=== PATIENT | female | born 1945 | race Caucasian/White ===

== ENCOUNTER 2020-05-09 20:41 | Emergency (ER) | payer MEDICARE, BC, SELFPAY ==
[2020-05-09 20:40] VITALS: BP 170/73; PULSE 84; RESP 22; O2SAT 100
--- NOTE | 2020-05-09 20:57 | ECG_ITS ---
Measurements Intervals [place] Rate: 81 P: 27 VA: 151 QRS: -8 QRSD: 86 T: 24 QT: 353 QTc: 412 Interpretive Statements SINUS RHYTHM BASELINE ARTIFACT- I, III, AVR, AVL, AVF NORMAL ECG Electronically Signed On 05-10-2020 6:57:12 CDT by Adan Murray D.O.
[2020-05-09 21:09] VITALS: BP 137/84
--- NOTE | 2020-05-09 21:10 | ED.ARRPALP ---
HPI - Arrhythmia/Palpitations General Chief Complaint: Arrhythmia/Palpitations Stated Complaint: high blood pressure, heart palpitations History of Present Illness HPI narrative: This is a 74-year-old female that presents with some history of palpitations has been getting frequent palpitations she saw her reinforcement maker earlier today and, her palpitations continued and she presents to the emergency department currently there was no palpitations while she has been here in the ER, there was no chest pain no shortness of breath no abdominal pain no nausea vomiting no diarrhea constipation. Patient has a history of hypertension, hyperlipidemia, and has been on magnesium. She saw her reinforcement maker earlier today and had orders to have blood work done per her reinforcement maker. Currently the patient appears comfortable no palpitations currently. complaint: skipped beats and palpitations Onset (ago): day(s) Duration: intermittent Severity: mild Context: occurred during rest Associated symptoms: denies other symptoms Related Data Allergies Allergy/AdvReac Type Severity Reaction Status Date / Time amoxicillin Allergy Intermediate Unknown Verified 04/23/20 13:18 sulfamethoxazole [Bactrim] Allergy Intermediate Unknown Verified 04/23/20 13:18 trimethoprim [Bactrim] Allergy Intermediate Unknown Verified 04/23/20 13:18 verapamil Allergy Intermediate Unknown Verified 04/23/20 13:18 lisinopril Allergy Unknown Palpitation Verified 04/23/20 13:18 s Sulfa (Sulfonamide Allergy Unknown Verified 04/23/20 13:18 Antibiotics) Sulfonamides Allergy Intermediate Unknown Uncoded 04/23/20 13:18 Review of Systems Review of Systems: All systems reviewed & are unremarkable except as noted in HPI and below PMFSH Past Medical History Medical History Cholecystitis (01/24/18) Dizziness (05/11/19) Essential hypertension (05/10/18) GERD (gastroesophageal reflux disease) (05/10/18) Paroxysmal tachycardia, unspecified (05/11/19) Surgical History Surgical History History of lumpectomy Family History Family History Father Lung cancer Mother Cerebrovascular accident Mother Cerebrovascular accident, Onset Age: 85 Father Family history of lung cancer Social History Social History Smoking status: Never smoker Exam Const: General: no acute distress Orientation/consciousness: patient oriented x3 HENMT: Head: normal to inspection Eyes: Conjunctivae: conjunctivae normal Pupils: Equal, round and reactive pupils present EOM: EOMs intact bilaterally Neck: Neck: normal visual inspection, no lymphadenopathy and no meningeal signs Chest: Chest palpation & inspection: normal inspection of the chest Resp: Effort & Inspection: normal respiratory effort Cardio: Rate: regular rate Rhythm: regular rhythm : General: Yes no CVA tenderness Back/Spine/Pelvis: Back: no CVA tenderness Skin: General skin exam: normal color Rashes: no rashes Neuro: General: patient oriented x3, moves all extremities, no meningeal signs and no focal motor deficits Extrem: General: normal to inspection Psych: Mental Status: mental status grossly normal Course Vital Signs Vital signs: Vital Signs Pulse Rate 84 05/09/20 20:40 Respiratory Rate 22 H 05/09/20 20:40 Blood Pressure 170/73 H 05/09/20 20:40 Pulse Oximetry 100 05/09/20 20:40 Pulse Rate 84 05/09/20 20:40 Respiratory Rate 22 H 05/09/20 20:40 Blood Pressure 137/84 05/09/20 21:09 Pulse Oximetry 100 05/09/20 20:40 MDM - Arrhythmia/Palpitations ECG Data EKG #1: ECG completion date: 05/09/20 ECG completion time: 21:18 Prior ECG tracings: not available for review EKG Interpretation: normal rate Critical Care Time Critical C
[2020-05-09 21:14] LABS: Mean Corpuscular HGB Conc 33.3 g/dL (32.0-36.0); Mean Corpuscular Hemoglobin 30.9 pg (27.0-31.0); Mean Corpuscular Volume 92.8 fL (78.0-102.0); Mean Platelet Volume 9.6 fl (9.2-11.8); Platelet Count Result 258 K/mm3 (150-420); Red Blood Count 4.85 M/mm3 (4.20-5.40); Red Cell Distribution Width 12.7 % (11.6-14.4); White Blood Count 11.4 K/mm3 (4.8-10.8)
[2020-05-09 21:38] LABS: Alanine Aminotransferase 18 U/L (14-59); Albumin Level 3.6 g/dL (3.4-5.0); Alkaline Phosphatase 124 U/L (46-116); Anion Gap 9.8 mmol/L (7-16); Aspartate Amino Transferase 17 U/L (15-37); Bilirubin,Total 0.2 mg/dL (0.00-1.00); Blood Urea Nitrogen 19 mg/dL (7-18); Calcium 9.2 mg/dL (8.5-10.1); Carbon Dioxide 30 mmol/L (21-32); Chloride 104 mmol/L (98-108); Estimated Glomerular Filt Rate 50; Glucose 136 mg/dL (70-99); Osmolality Calculated 294 mOsm/kg (285-295); Potassium 3.8 mmol/L (3.5-5.1); Sodium 140 mmol/L (136-145); Total Protein 7.6 g/dL (6.4-8.2)
[2020-05-09 21:39] LABS: Thyroid Stimulating Hormone 3.13 uIU/mL (0.36-3.74)
[2020-05-09 21:53] VITALS: BP 133/71; PULSE 81; O2SAT 97
== END 2020-05-09 21:55 | disposition home or self-care (01) ==
PROVIDERS: Emergency Provider Emergency Medicine; PCP Nurse Practitioner Family
DX: R00.2 Palpitations (principal); F41.9 Anxiety disorder, unspecified
CPT/HCPCS: 36415; 80053; 83735; 84443; 85027; 93005; 99283

== ENCOUNTER 2020-05-10 14:22 | Outpatient (CLI) | payer MEDICARE, BC, SELFPAY ==
--- NOTE | 2020-06-10 16:01 | WPDHOLTEREM ---
Holter/Event Monitor Holter/Event Monitor Date of procedure: 05/10/20 Procedure Type: 30 day event monitor Indications: Palpitations Conclusion: 1. 30 day event monitor between 05/10/20-06/08/20. There are 38 available transmissions for analysis. 2. Underlying rhythm is sinus rhythm. HR range 50-120 bpm; average HR 64 bpm. 3. There are occasional premature supraventricular complexes with total burden <1%. No supraventricular tachycardia. 4. There are occasional premature ventricular complexes with total burden <1%. No ventricular tachycardia. 5. No sinoatrial or atrioventricular blocks. No significant pauses greater than 2 seconds. 6. Patient reports 2 episodes of symptoms of heart racing and symptom other than listed which demonstrate sinus rhythm, HR range 73-81 bpm.
== END 2020-05-10 14:23 | disposition home or self-care (01) ==
LOC: CHSCARD 14:24
PROVIDERS: PCP Nurse Practitioner Family; Visit Provider Internal Medicine Cardiovascular Disease
DX: Z53.8 Procedure and treatment not carried out for other reasons (principal)
CPT/HCPCS: 99199

== ENCOUNTER 2020-09-27 07:12 | Outpatient (CLI) | payer MEDICARE, SELFPAY ==
[2020-09-27 09:06] LABS: Alanine Aminotransferase 22 U/L (14-59); Albumin Level 3.7 g/dL (3.4-5.0); Alkaline Phosphatase 100 U/L (46-116); Anion Gap 10 mmol/L (8-16); Aspartate Amino Transferase 12 U/L (15-37); Bilirubin,Total 0.4 mg/dL (0.00-1.00); Blood Urea Nitrogen 17 mg/dL (7-18); Calcium 9.2 mg/dL (8.5-10.1); Carbon Dioxide 27 mmol/L (21-32); Chloride 105 mmol/L (98-108); Cholesterol 182 mg/dL (0-200); Estimated Glomerular Filt Rate 57; Glucose 102 mg/dL (70-99); HDL Direct 41 mg/dL (40-60); LDL Cholesterol Calculated 108 mg/dL (<130); Magnesium 1.9 mg/dL (1.8-2.4); Osmolality Calculated 295 mOsm/kg (285-295); Sodium 142 mmol/L (136-145); Total Protein 7.1 g/dL (6.4-8.2); Triglycerides 167 mg/dL (0-150)
== END 2020-09-27 07:13 | disposition home or self-care (01) ==
LOC: CHSLAB 07:16
PROVIDERS: PCP Nurse Practitioner Family; Visit Provider Internal Medicine Cardiovascular Disease
DX: E78.5 Hyperlipidemia, unspecified (principal)
CPT/HCPCS: 36415; 80053; 80061; 83735

== ENCOUNTER 2020-10-04 10:22 | Outpatient (CLI) | payer MEDICARE, BC, SELFPAY ==
--- NOTE | ~2020-10-04 | MMUS_ITS ---
EXAMINATION: MM diagnostic astrid RT w francisca, US axilla RT HISTORY: Right breast pain, history of right breast cancer TECHNIQUE: Craniocaudal, mediolateral, and mediolateral oblique 3-D tomosynthesis images of the right breast were performed and synthetic 2-D images were generated. CAD analysis was submitted and interp reted. High resolution right axillary ultrasound was performed. COMPARISON: 12/14/2019, 12/12/2018, 07/11/2018, 12/06/2017 BREAST PARENCHYMAL COMPOSITION: There are scattered areas of fibroglandular density. FINDINGS: MAMMOGRAPHIC FINDINGS: Stable lumpectomy changes are present in the breast. There is no suspicious mass, calcification, or a rchitectural distortion. No mammographic correlate is identified for the patient's reported right axi llary tenderness. ULTRASOUND: There is no evidence of focal abnormal solid or cystic lesion in the vicinity of the patient's right axillary pain. IMPRESSION: 1. No specific mammographic or sonographic correlate is identified for the patient's right axillary p ain. Further evaluation at this time should be based on clinical assessment. Continued follow-up phys ical examination is recommended. 2. Routine screening mammography is recommended. BI-RADS Category 2: Benign finding(s). Reviewed, dictated and finalized at location A. 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 No specific mammographic or sonographic correlate is identified for the sandra ent's right axillary pain. Further evaluation at this time should be based on c linical assessment. Continued follow-up physical examination is recommended. 2. Routine screening mammography is recommended. BI-RADS Category 2: Benign finding(s).
== END 2020-10-04 10:23 | disposition home or self-care (01) ==
LOC: CHSIMG 10:23
PROVIDERS: PCP Nurse Practitioner Family; Visit Provider Nurse Practitioner Family
DX: N64.59 Other signs and symptoms in breast (principal); N64.4 Mastodynia; M79.621 Pain in right upper arm
CPT/HCPCS: 76882; 77061; 77065; G0279

== ENCOUNTER 2020-11-15 16:43 | Emergency (ER) | payer MEDICARE, BC, SELFPAY ==
[2020-11-15 18:30] VITALS: BP 146/71; PULSE 78; RESP 16; TEMP 37; O2SAT 96
[2020-11-15] MEDS: ORPHENADRINE CITRATE 100 MG TABLET.ER PO (19:15)
[2020-11-15] MEDS: KETOROLAC (*BKC) 60 MG/2 ML VIAL IM (19:15)
--- NOTE | 2020-11-15 19:44 | ED.GENADULT ---
HPI - General Adult General Chief complaint: Extremity Injury, Upper Stated complaint: pain in shoulder Time Seen by Provider: 11/15/20 18:40 Source: patient Mode of arrival: ambulatory Limitations: no limitations History of Present Illness HPI narrative: She complains of pain in right neck and shoulder after reportedly moving heavy objects yesterday. Onset of pain, or when she noticed it was this am when she woke about 8am. Measures taken at home have not helped. Radiation: non-radiation Severity: moderate Severity scale (1-10): 6 Quality: burning and aching Pain Consistency: constant Relieving factors: none Exacerbating factors: movement Associated symptoms: denies other symptoms Treatments prior to arrival: NSAID Related Data Allergies Allergy/AdvReac Type Severity Reaction Status Date / Time amoxicillin Allergy Intermediate Unknown Verified 11/04/20 13:16 sulfamethoxazole [Bactrim] Allergy Intermediate Unknown Verified 11/04/20 13:16 verapamil Allergy Intermediate Unknown Verified 11/04/20 13:16 lisinopril Allergy Unknown Palpitation Verified 11/04/20 13:16 s Sulfa (Sulfonamide Allergy Unknown Unknown Verified 11/04/20 13:16 Antibiotics) Review of Systems Constitutional: Constitutional: Reports no additional constitutional complaints Eyes: Eyes: Reports no additional eye complaints ENT: Reports system reviewed and no additional complaints, except as documented Cardiovascular: Cardiovascular: Reports no additional cardiovascular complaints Respiratory: Respiratory: Reports no additional respiratory complaints Gastrointestinal: Gastrointestinal: Reports no additional gastrointestinal complaints Genitourinary: Genitourinary: Reports no additional female genitourinary complaints Musculoskeletal: Musculoskeletal: Reports no additional musculoskeletal complaints Integumentary/Breasts: Skin/Breast: Reports system reviewed and no additional complaints, except as docu Neurologic: Reports system reviewed and no additional complaints, except as documented Psychiatric: Psychiatric: Reports no additional psychiatric complaints Endocrine: Endocrine: Reports no additional endocrine complaints Hematologic/Lymphatic: Hematologic/Lymphatic: Reports no additional hematologic/lymphatic complaints Allergic/Immunologic: Allergic/Immunologic: Reports no additional allergic/immunologic complaints PMFSH Past Medical History Medical History Cholecystitis (01/24/18) Dizziness (05/11/19) Essential hypertension (05/10/18) GERD (gastroesophageal reflux disease) (05/10/18) Paroxysmal tachycardia, unspecified (05/11/19) Surgical History Surgical History History of lumpectomy Family History Family History Father Lung cancer Mother Cerebrovascular accident Mother Cerebrovascular accident, Onset Age: 85 Father Family history of lung cancer Social History Social History Smoking status: Never smoker Tobacco type: cigarettes Substance use: never Substance use type: does not use Exam Narrative: Exam Narrative: She appears uncomfortable with any movement of neck to the left. Const: General: healthy appearing and no acute distress Orientation/consciousness: patient oriented x3 HENMT: Head: normal to inspection Ears: external ears normal and TM's normal bilaterally General nose exam: Normal nares present Face and sinus: normal facial exam Mouth: Yes Normal oral and palatal mucosa present Throat: posterior oropharynx normal Eyes: Conjunctivae: conjunctivae normal Neck: Neck: normal visual inspection Other: She seems to have pain turning neck to left, no pain along cervical spine, or moving neck up and down. Denies trauma. Chest: Chest palpation & inspection: normal inspection of the chest Res
[2020-11-15 19:58] VITALS: O2SAT 97
[2020-11-15 20:00] VITALS: BP 133/60; PULSE 68; RESP 15; O2SAT 98
== END 2020-11-15 20:00 | disposition home or self-care (01) ==
PROVIDERS: Emergency Provider Emergency Medicine; PCP Nurse Practitioner Family
DX: M54.2 Cervicalgia (principal)
CPT/HCPCS: 96372; 99283; A9270; J1885

== ENCOUNTER 2020-11-17 10:50 | Emergency (ER) | payer MEDICARE, BC, SELFPAY ==
[2020-11-17 11:15] VITALS: BP 156/68; PULSE 74; RESP 20; TEMP 36.4; O2SAT 97
[2020-11-17] MEDS: KETOROLAC (*BKC) 60 MG/2 ML VIAL IM (11:30)
--- NOTE | 2020-11-17 12:54 | ED.EXTPRO ---
HPI - Extremity Problem General Chief complaint: Extremity Problem,Nontraumatic Stated complaint: right sholder Time Seen by Provider: 11/17/20 11:25 Source: patient Mode of arrival: ambulatory Limitations: no limitations History of Present Illness HPI Narrative: Patient comes in with pain in her left neck and radiation down the left shoulder. She states this is severe, sharp, and ongoing. She took the baclofen that I gave her, but says it did not help. Pain Consistency: intermittent Location: upper extremity Severity scale (1-10): 8 Quality: aching Relieving factors: nothing Exacerbating factors: nothing Associated symptoms: denies other symptoms Related Data Allergies Allergy/AdvReac Type Severity Reaction Status Date / Time amoxicillin Allergy Intermediate Unknown Verified 11/04/20 13:16 sulfamethoxazole [Bactrim] Allergy Intermediate Unknown Verified 11/04/20 13:16 verapamil Allergy Intermediate Unknown Verified 11/04/20 13:16 lisinopril Allergy Unknown Palpitation Verified 11/04/20 13:16 s Sulfa (Sulfonamide Allergy Unknown Unknown Verified 11/04/20 13:16 Antibiotics) Review of Systems Constitutional: Constitutional: Reports no additional constitutional complaints Eyes: Eyes: Reports no additional eye complaints ENT: Reports system reviewed and no additional complaints, except as documented Cardiovascular: Cardiovascular: Reports no additional cardiovascular complaints Respiratory: Respiratory: Reports no additional respiratory complaints Gastrointestinal: Gastrointestinal: Reports no additional gastrointestinal complaints Genitourinary: Genitourinary: Reports no additional female genitourinary complaints Musculoskeletal: Comments: Now she can move her head without any discomfort in her neck and has full range of motion. Integumentary/Breasts: Skin/Breast: Reports system reviewed and no additional complaints, except as docu Neurologic: Reports system reviewed and no additional complaints, except as documented Psychiatric: Psychiatric: Reports no additional psychiatric complaints Endocrine: Endocrine: Reports no additional endocrine complaints Hematologic/Lymphatic: Hematologic/Lymphatic: Reports no additional hematologic/lymphatic complaints Allergic/Immunologic: Allergic/Immunologic: Reports no additional allergic/immunologic complaints PMFSH Past Medical History Medical History Cholecystitis (01/24/18) Dizziness (05/11/19) Essential hypertension (05/10/18) GERD (gastroesophageal reflux disease) (05/10/18) Paroxysmal tachycardia, unspecified (05/11/19) Surgical History Surgical History History of lumpectomy Family History Family History Father Lung cancer Mother Cerebrovascular accident Mother Cerebrovascular accident, Onset Age: 85 Father Family history of lung cancer Social History Social History Smoking status: Never smoker Tobacco type: cigarettes Substance use: never Substance use type: does not use Exam Const: General: healthy appearing and no acute distress HENMT: Head: normal to inspection Ears: external ears normal and TM's normal bilaterally Face and sinus: normal facial exam Throat: posterior oropharynx normal Eyes: Conjunctivae: conjunctivae normal Neck: Neck: normal visual inspection Other: normal range of motion of the neck Chest: Chest palpation & inspection: normal inspection of the chest Resp: Effort & Inspection: normal respiratory effort Auscultation: clear to auscultation bilaterally Cardio: Rate: regular rate Rhythm: regular rhythm GI: GI Palp: Yes Soft to palpation (nontender) Skin: General skin exam: normal color Neuro: General: patient oriented x3 Extrem: General: normal to inspection Psych: Mental Status: mental stat
[2020-11-17 13:16] VITALS: BP 154/65
== END 2020-11-17 13:16 | disposition home or self-care (01) ==
PROVIDERS: Emergency Provider Emergency Medicine; PCP Nurse Practitioner Family
DX: M54.2 Cervicalgia (principal)
CPT/HCPCS: 96372; 99283; 99284; J1100; J1885

== ENCOUNTER 2020-11-26 09:56 | Outpatient (RCR) | payer MEDICARE, BC, SELFPAY ==
--- NOTE | 2020-11-26 11:05 | PTOPEVAL ---
Thank you for referring Lizz Mary to [facility].? The patient is scheduled to be seen for therapy? ____x/week for ___ weeks. Please review, sign, date and return this plan of care HITESH. I agree with and certify that the following plan of care is medically necessary. Referring Physician Date Admitting Provider: Attending Provider: Darcy Shaw NP Referring Provider: *PT Outpatient Evaluation Start: 11/26/20 10:06 Freq: Status: Active Protocol: Document 11/26/20 10:11 [facility] (Rec: 11/26/20 11:05 [facility] [id number]) Therapy Assessment Status Assessment Status Assessment Status Evaluation Outpatient Past Medical History Cardiovascular History Hx Hypertension Yes Gastrointestinal History Hx Cholecystectomy Yes Reproductive History Hx Post Menopausal Yes Other History Hx Cancer Yes: R BREAST WITH LUMPECTOMY Hx Other Medical Conditions Yes: LYMPHEDEMA Evaluation Information Problem Diagnosis cervical radiculopathy Onset 11/15/20 Additional Evaluation Detail NDI = 23% functionally declined Subjective Information patient reports she had some Query Text:As Reported By Patient/ guests to her house on [address]. she reports she had to move some furniture that day. she reports she woke up the neck morning with pain on the R side of the neck down the R arm, and into the wrist. she reports she was taking muscle relaxors and pain meds, but no longer is taking them. she reports her meds were making her loopy and sleepy. she reports she has increased pain in the mornings . she reports she uses an ice pack on the arm. she reports she notivces increased pain with turning her head side to side. Prior Level of Function Comments Additional Prior Level of Function patient reports she is Comments complicated by sciatic nerve pain as well. [facility] patient reports she is having difficulty with doing her hair and makeup at home.
--- NOTE | 2020-12-24 16:23 | PTOPEVAL ---
Thank you for referring Lizz Mary to [facility].? The patient is scheduled to be seen for therapy? ____x/week for ___ weeks. Please review, sign, date and return this plan of care HITESH. I agree with and certify that the following plan of care is medically necessary. Referring Physician Date Admitting Provider: Attending Provider: Darcy Shaw NP Referring Provider: JARVIS Outpatient Evaluation Start: 11/26/20 10:06 Freq: Status: Active Protocol: Document 12/24/20 10:00 [facility] (Rec: 12/24/20 16:22 [facility] [id number]) Therapy Assessment Status Assessment Status Assessment Status Re-evaluation Outpatient Past Medical History Cardiovascular History Hx Hypertension Yes Gastrointestinal History Hx Cholecystectomy Yes Reproductive History Hx Post Menopausal Yes Other History Hx Cancer Yes: R BREAST WITH LUMPECTOMY Hx Other Medical Conditions Yes: LYMPHEDEMA Evaluation Information Problem Diagnosis cervical radiculopathy, lateral epicondylitis Onset 11/15/20 Subjective Information patient reports her neck feels Query Text:As Reported By Patient/ Great. however, she reports Family she is continuing to have pain in the R lateral elbow. she reports it prevents her from completing any activities using her R UE. Pain Assessment Timing of Pain Assessment Timing of Pain Assessment Assessment Pain Scale Pain Scale Used Numeric (1 - 10) Self Report Pain Assessment Right Elbow(s) Reported Pain Level 3 Greatest Pain Intensity 6 Right Neck Reported Pain Level 0 Pain Score Pain Score 3,0: Self Report Interventions Used Interventions Used By Clinicians Activity or ADL's,Education, Electrical Stimulation, Exercise,Heat,Manual Therapy Techniques,Myofascial Release, Ultrasound Cervical and Lumbar ROM Cervical ROM Cervical Flexion (0-60) 50 Query Text:Active in Degrees Cervical Extension (0-70) 45 Query Text:Active in Degrees Cervical Lateral Flexion Right (0-50) 30 Query Text:Active in Degrees Cervical Lateral Flexion Left (0-50) 22 Query Text:Active in Degrees Cervical Rotation Right (0-90) 65 Query Text:Active in Degrees Cervical Rotation Left (0-90) 65 Query Text:Active in Degrees Cervical and Lumbar Muscle Testing Cervical Muscle Testing Cervical Flexion 4+ Good+ Cervical Extension 5 Normal
== END 2021-01-08 16:11 | disposition home or self-care (01) ==
LOC: CHSPT 09:56
PROVIDERS: PCP Nurse Practitioner Family; Visit Provider Nurse Practitioner Family
DX: M54.12 Radiculopathy, cervical region (principal)
CPT/HCPCS: 97014; 97035; 97110; 97140; 97161; G0283

== ENCOUNTER 2020-12-30 10:49 | Outpatient (CLI) | payer MEDICARE, BC, SELFPAY ==
--- NOTE | ~2020-12-30 | MM_ITS ---
EXAMINATION: MM screening astrid BI w francisca HISTORY: Screening mammogram TECHNIQUE: Craniocaudal and mediolateral oblique 3-D tomosynthesis images were obtained and synthetic 2-D images were generated. CAD analysis was submitted and interpreted. COMPARISON: 10/04/2020 right diagnostic digital mammogram 12/14/2019 bilateral digital screening mammogram 09/26/2019 limited right breast ultrasound 12/12/2018 bilateral digital screening mammogram 07/11/2018 diagnostic right digital mammogram and right breast ultrasound 12/06/2017, 12/10/2016 bilateral digital screening mammogram examinations BREAST PARENCHYMAL COMPOSITION: There are scattered areas of fibroglandular density. FINDINGS: There is asymmetric diminished size of the right breast consistent with history of partial right mastectomy for breast cancer in 2004. There is no evidence of suspicious mass, calcification, o r architectural distortion to suggest malignancy in either breast. There has been no suspicious inter valery change. IMPRESSION: 1. No mammographic evidence of malignancy. 2. Recommend routine screening mammography in one year. BI-RADS Category 2: Benign finding(s). Reviewed, dictated and finalized at location A. 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
== END 2020-12-30 10:50 | disposition home or self-care (01) ==
LOC: CHSIMG 10:51
PROVIDERS: PCP Nurse Practitioner Family; Visit Provider Nurse Practitioner Family
DX: Z12.31 Encounter for screening mammogram for malignant neoplasm of breast (principal)
CPT/HCPCS: 77063; 77067

== ENCOUNTER 2021-04-16 11:00 | Outpatient (CLI) | payer MEDICARE, BC, SELFPAY ==
--- NOTE | ~2021-04-16 | XR_ITS ---
EXAMINATION: XR knee LT 2V DATE: 04/16/2021 11:31 INDICATION: Left knee pain and injury. TECHNIQUE: 2 views of left knee were obtained. COMPARISON: None. FINDINGS: Bone alignment is normal. No fracture. There is moderate osteoarthritis of medial compartme nt and mild osteoarthritis of lateral and patellofemoral compartments. No knee joint effusion. IMPRESSION: 1. Moderate left knee osteoarthritis. Reviewed, dictated and finalized at location B.
== END 2021-04-16 11:01 | disposition home or self-care (01) ==
LOC: CHSLAB 11:03
PROVIDERS: PCP Nurse Practitioner Family; Visit Provider Nurse Practitioner Family
DX: M25.562 Pain in left knee (principal)
CPT/HCPCS: 73560

== ENCOUNTER 2021-11-17 09:38 | Outpatient (CLI) | payer MEDICARE, BC, SELFPAY ==
--- NOTE | ~2021-11-17 | XR_ITS ---
EXAMINATION: XR knee RT 3V DATE: 11/17/2021 09:51 INDICATION: Medial right knee pain. TECHNIQUE: 3 views of right knee were obtained. COMPARISON: None. FINDINGS: Bone alignment is normal. No fracture. There is mild tricompartmental osteoarthritis. No kn ee joint effusion. IMPRESSION: 1. Mild right knee osteoarthritis. Reviewed, dictated and finalized at location A. 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
== END 2021-11-17 09:39 | disposition home or self-care (01) ==
LOC: CHSIMG 09:39
PROVIDERS: PCP Nurse Practitioner Family; Visit Provider Nurse Practitioner Family
DX: M25.561 Pain in right knee (principal)
CPT/HCPCS: 73562

== ENCOUNTER 2021-11-27 15:08 | Emergency (ER) | payer MEDICARE, BC, SELFPAY ==
[2021-11-27 15:15] VITALS: BP 154/79; PULSE 74; RESP 20; TEMP 36.4; O2SAT 98
[2021-11-27 16:31] VITALS: BP 151/68; PULSE 71; RESP 20; O2SAT 98
--- NOTE | 2021-11-27 16:45 | ED.GENADULT ---
HPI - General Adult General Chief complaint: Unspecified Stated complaint: Lt side pain Source: patient and family Mode of arrival: ambulatory Limitations: no limitations History of Present Illness HPI narrative: this is a 76-year-old female with history of hypertension and a history of palpitations currently presented with some epigastric discomfort that she currently denies having but does occur off and on has a burning sensation especially after meals with no nausea vomiting no chest pain no palpitations no shortness of breath. Onset (ago): week(s) Location: abdomen Severity: similar to prior episodes Quality: burning Pain Consistency: intermittent and other ( after meals) Related Data Allergies Allergy/AdvReac Type Severity Reaction Status Date / Time amoxicillin Allergy Intermediate Unknown Verified 11/19/21 14:06 sulfamethoxazole [Bactrim] Allergy Intermediate Unknown Verified 11/19/21 14:06 verapamil Allergy Intermediate Unknown Verified 11/19/21 14:06 lisinopril Allergy Unknown Palpitation Verified 11/19/21 14:06 s Sulfa (Sulfonamide Allergy Unknown Unknown Verified 11/19/21 14:06 Antibiotics) Review of Systems Review of Systems: All systems reviewed & are unremarkable except as noted in HPI and below PMFSH Past Medical History Medical History Breast cancer 2005 Cholecystitis (01/24/18) Dizziness (05/11/19) Essential hypertension (05/10/18) GERD (gastroesophageal reflux disease) (05/10/18) Paroxysmal tachycardia, unspecified (05/11/19) Surgical History Surgical History History of lumpectomy Family History Family History Father Lung cancer Mother Cerebrovascular accident Mother Cerebrovascular accident, Onset Age: 85 Father Family history of lung cancer Social History Social History Smoking status: Never smoker Tobacco type: cigarettes Substance use: never Substance use type: does not use Exam Const: General: cooperative, healthy appearing, comfortable, no acute distress and well developed HENMT: Head: normal to inspection Ears: hearing grossly normal bilaterally General nose exam: Normal external nose present Face and sinus: normal facial exam Mouth: Yes Normal oral and palatal mucosa present Throat: posterior oropharynx normal Eyes: General: appearance normal, both eyes and all related structures Neck: Neck: normal visual inspection, full ROM, no lymphadenopathy and no meningeal signs Chest: Chest palpation & inspection: normal inspection of the chest and normal palpation of entire chest wall Resp: Effort & Inspection: normal respiratory effort Cardio: Jugular venous distension: no JVD Palpation: normal PMI Rate: regular rate Rhythm: regular rhythm GI: Inspection: normal to inspection GI Palp: Yes abdominal tenderness ( Epigastric discomfort) Urinary Catheter: Urinary Catheter: patent and draining Back/Spine/Pelvis: Back: no CVA tenderness Skin: General skin exam: normal color and no rashes or lesions noted Neuro: General: oriented to person, oriented to place and oriented to time Course Course Emergency Course: advised patient to start taking medicine as prescribed otherwise currently she is asymptomatic but has been having off and on epigastric discomfort with burning has been taking Prilosec [id number] with minimal to no relief. Vital Signs Vital signs: Vital Signs Temperature 36.4 C 11/27/21 15:15 Pulse Rate 74 11/27/21 15:15 Respiratory Rate 20 11/27/21 15:15 Blood Pressure 154/79 H 11/27/21 15:15 Pulse Oximetry 98 11/27/21 15:15 Temperature 36.4 C 11/27/21 15:15 Pulse Rate 71 11/27/21 16:31 Respiratory Rate 20 11/27/21 16:31 Blood Pressure 151/68 H 11/27/21 16:31 Pulse Oximetry 98
[2021-11-27 16:54] VITALS: BP 149/85; PULSE 75; RESP 20; TEMP 36.9; O2SAT 98
== END 2021-11-27 16:55 | disposition home or self-care (01) ==
PROVIDERS: Emergency Provider Emergency Medicine; PCP Nurse Practitioner Family
DX: K21.9 Gastro-esophageal reflux disease without esophagitis (principal); Z85.3 Personal history of malignant neoplasm of breast; I10 Essential (primary) hypertension
CPT/HCPCS: 99283

== ENCOUNTER 2021-12-31 09:31 | Outpatient (CLI) | payer MEDICARE, BC, SELFPAY ==
--- NOTE | ~2021-12-31 | MM_ITS ---
EXAMINATION: MM screening astrid BI w francisca HISTORY: Screening mammogram, history of right breast cancer TECHNIQUE: Craniocaudal and mediolateral oblique 3-D tomosynthesis images were obtained and synthetic 2-D images were generated. CAD analysis was submitted and interpreted. COMPARISON: 12/30/2020, 10/04/2020, 12/14/2019, 12/12/2018 BREAST PARENCHYMAL COMPOSITION: There are scattered areas of fibroglandular density. FINDINGS: There is no evidence of suspicious mass, calcification, or architectural distortion to sugg est malignancy in either breast. There has been no suspicious interval change. IMPRESSION: 1. No mammographic evidence of malignancy. 2. Recommend routine screening mammography in one year. BI-RADS Category 1: Negative Reviewed, dictated and finalized at location A. GN ENG
== END 2021-12-31 09:32 | disposition home or self-care (01) ==
LOC: CHSIMG 09:32
PROVIDERS: PCP Nurse Practitioner Family; Visit Provider Nurse Practitioner Family
DX: Z12.31 Encounter for screening mammogram for malignant neoplasm of breast (principal)
CPT/HCPCS: 77063; 77067

== ENCOUNTER 2022-01-01 08:14 | Outpatient (CLI) | payer MEDICARE, BC, SELFPAY ==
--- NOTE | ~2022-01-01 | US_ITS ---
EXAMINATION: US abdomen complete EXAM DATE: 01/01/2022 08:44 INDICATION: R10.9 - Unspecified abdominal pain. TECHNIQUE: Multiple grayscale and Doppler images of the complete abdomen were obtained (by a technolo gist who performed the scan) and subsequently reviewed. Comparison is made to prior examination from 01/21/2018. FINDINGS: The abdominal aorta is normal in caliber. Visualized portion IVC is patent. The pancreatic head a nd body are normal in appearance. The pancreatic tail is not visualized. Mildly echogenic liver parenchyma, hepatic steatosis. There are no focal liver lesions identified. There is no evidence of intrahepatic biliary duct dilation. Portal venous flow was seen in the hepa topedal, normal direction and has normal Doppler waveform. Common bile duct measures 3 mm, which is normal. The gallbladder fossa is unremarkable, interval chol ecystectomy. Right kidney: There is normal contour and echogenicity. It measures 9.4 x 4.8 x 4.0 centimeters. T here are no focal renal lesions identified. There is no hydronephrosis. Left kidney: There is normal contour and echogenicity. It measures 9.1 x 3.8 x 3.8 centimeters. Th ere are no focal renal lesions identified. There is no hydronephrosis. The spleen measures 8.3 centimeters and is morphologically normal. IMPRESSION: Hepatic steatosis. Reviewed, dictated and finalized at location B. TION CONSULTANT IMPRESSION: Hepatic steatosis.
[2022-01-01 09:32] LABS: Alanine Aminotransferase 30 U/L (14-59); Albumin Level 3.8 g/dL (3.4-5.0); Alkaline Phosphatase 79 U/L (46-116); Anion Gap 11 mmol/L (8-16); Aspartate Amino Transferase 20 U/L (15-37); Bilirubin,Total 0.3 mg/dL (0.00-1.00); Blood Urea Nitrogen 12 mg/dL (7-18); Calcium 9.4 mg/dL (8.5-10.1); Carbon Dioxide 29 mmol/L (21-32); Chloride 102 mmol/L (98-108); Cholesterol 165 mg/dL (0-200); Estimated Glomerular Filt Rate > 60; Glucose 108 mg/dL (70-99); HDL Direct 41 mg/dL (40-60); LDL Cholesterol Calculated 98 mg/dL (<130); Osmolality Calculated 294 mOsm/kg (285-295); Potassium 4.1 mmol/L (3.5-5.1); Sodium 142 mmol/L (136-145); Total Protein 7.1 g/dL (6.4-8.2); Triglycerides 131 mg/dL (0-150)
== END 2022-01-01 08:15 | disposition home or self-care (01) ==
LOC: CHSIMG 08:15
PROVIDERS: PCP Nurse Practitioner Family; Visit Provider Internal Medicine Cardiovascular Disease
DX: E78.5 Hyperlipidemia, unspecified (principal); R10.9 Unspecified abdominal pain
CPT/HCPCS: 36415; 76700; 80053; 80061

== ENCOUNTER 2023-01-04 08:06 | Outpatient (CLI) | payer MEDICARE, OTHER, SELFPAY ==
--- NOTE | ~2023-01-04 | MM_ITS ---
EXAMINATION: MM screening astrid BI w francisca HISTORY: Screening mammogram TECHNIQUE: Craniocaudal and mediolateral oblique 3-D tomosynthesis images were obtained and synthetic 2-D images were generated. CAD analysis was submitted and interpreted. COMPARISON: December 31, 2021, December 30, 2020, October 04, 2020 bilateral screening mammogram exami [place] BREAST PARENCHYMAL COMPOSITION: There are scattered areas of fibroglandular density. FINDINGS: There is chronic asymmetric smaller right breast; history of prior right partial mastectomy for breast cancer. There is no evidence of suspicious mass, calcification, or architectural distorti on to suggest malignancy in either breast. There has been no suspicious interval change. IMPRESSION: 1. No mammographic evidence of malignancy. 2. Recommend routine screening mammography in one year. BI-RADS Category 2: Benign finding(s). Reviewed, dictated and finalized at location A. GLOVE CLEANER
[2023-01-04 08:22] LABS: Basophils Absolute Auto 0.06 K/mm3 (0.00-0.10); Basophils Percent Auto 0.6 % (0.0-1.0); Eosinophils Absolute Auto 0.14 K/mm3 (0.02-0.50); Eosinophils Percent Auto 1.5 % (1.0-6.0); Hematocrit 47.7 % (35.0-42.0); Hemoglobin 15.5 g/dL (11.7-13.8); Immature Granulocyte Absolute 0.02 K/mm3 (0.00-0.00); Immature Granulocyte Percent A 0.2 % (0.0-0.0); Lymphocytes Absolute Auto 2.31 K/mm3 (1.10-4.50); Lymphocytes Percent Auto 24.5 % (18.0-42.0); Mean Corpuscular HGB Conc 32.5 g/dL (32.0-36.0); Mean Corpuscular Hemoglobin 30.6 pg (27.0-31.0); Mean Corpuscular Volume 94.1 fL (78.0-102.0); Mean Platelet Volume 9.6 fl (9.2-11.8); Monocytes Absolute Auto 0.62 K/mm3 (0.10-0.90); Monocytes Percent Auto 6.6 % (2.0-11.0); Neutrophils Absolute Auto 6.3 K/mm3 (1.7-7.2); Neutrophils Percent Auto 66.6 % (50.0-70.0); Platelet Count Result 265 K/mm3 (150-420); Red Blood Count 5.07 M/mm3 (4.20-5.40); White Blood Count 9.4 K/mm3 (4.8-10.8)
[2023-01-04 09:23] LABS: Cholesterol 200 mg/dL (0-200); HDL Direct 46 mg/dL (40-60); LDL Cholesterol Calculated 121 mg/dL (<130); Magnesium 2.1 mg/dL (1.8-2.4); Triglycerides 163 mg/dL (0-150)
== END 2023-01-04 08:07 | disposition home or self-care (01) ==
PROVIDERS: PCP Nurse Practitioner Family; Visit Provider Internal Medicine Cardiovascular Disease
DX: Z12.31 Encounter for screening mammogram for malignant neoplasm of breast (principal); E78.5 Hyperlipidemia, unspecified
CPT/HCPCS: 36415; 77063; 77067; 80061; 83735; 85025

== ENCOUNTER 2023-01-06 09:34 | Outpatient (CLI) | payer MEDICARE, OTHER, SELFPAY ==
[2023-01-10 15:53] LABS: H pylori Ag Stool Not Detected (Not Detected)
== END 2023-01-06 09:35 | disposition home or self-care (01) ==
LOC: CHSLAB 09:35
PROVIDERS: PCP Nurse Practitioner Family; Visit Provider Nurse Practitioner Family
DX: K52.9 Noninfective gastroenteritis and colitis, unspecified (principal)
CPT/HCPCS: 87338

== ENCOUNTER 2023-02-02 08:49 | Outpatient (CLI) | payer MEDICARE, OTHER, SELFPAY ==
--- NOTE | ~2023-02-02 | NM_ITS ---
EXAM: NM gastric emptying study DATE: 02/02/2023 13:45 INDICATION: Postprandial bloating and nausea. TECHNIQUE: A gastric emptying study was performed using the methodology of Teo CHIRINOS, et al. J Nucl Med 2007; 48:568-572. The patient was given a meal consisting of 2 scrambled eggs labeled with 1 mCi Tc-99m sulfur colloid, 2 slices of toast, two packages of jam, and approximately 120 mL of water. Si multaneous anterior and posterior 1-min images of the abdomen were obtained with the patient supine a t multiple time points over a total period of 4 hours. The geometric mean of anterior and posterior v iews was determined, and the percentage retention was calculated for each time point. COMPARISON: None. FINDINGS: Gastric retention of the radiotracer-labeled meal was 87%, 67%, and 2% at the 1-hour, 2-ho ur, and 4-hour time points, respectively. With this technique, apparent rapid gastric emptying is sug gested by <30% gastric retention at 1 hour. Delayed gastric emptying is defined by gastric retention of >90% at 1 hour, >60% retention at 2 hours, or >10% retention at 4 hours. IMPRESSION: 1. Delayed gastric emptying. Reviewed, dictated and finalized at location A.
== END 2023-02-02 08:50 | disposition home or self-care (01) ==
LOC: CHSIMG 08:51
PROVIDERS: PCP Nurse Practitioner Family; Visit Provider Nurse Practitioner Family
DX: R14.0 Abdominal distension (gaseous) (principal); K30 Functional dyspepsia
CPT/HCPCS: 78264; A9541

== ENCOUNTER 2023-11-03 09:12 | Outpatient (CLI) | payer MEDICARE, OTHER, SELFPAY ==
[2023-11-03 10:01] LABS: SARS-CoV-2 RNA PCR Positive (Negative)
[2023-11-03 10:02] LABS: Influenza A QL RT-PCR Negative (Negative); Influenza B QL RT-PCR Negative (Negative)
== END 2023-11-03 09:13 | disposition home or self-care (01) ==
LOC: CHSLAB 09:16
PROVIDERS: PCP Nurse Practitioner Family; Visit Provider Nurse Practitioner Family
DX: U07.1 COVID-19 (principal); J06.9 Acute upper respiratory infection, unspecified
CPT/HCPCS: 87636

== ENCOUNTER 2024-01-06 10:47 | Outpatient (CLI) | payer MEDICARE, SELFPAY ==
--- NOTE | ~2024-01-06 | MM_ITS ---
EXAMINATION: MM screening astrid BI w francisca HISTORY: Screening mammogram, history of right breast cancer TECHNIQUE: Craniocaudal and mediolateral oblique 3-D tomosynthesis images were obtained and synthetic 2-D images were generated. CAD analysis was submitted and interpreted. COMPARISON: 01/04/2023, 12/31/2021, 12/30/2020 BREAST PARENCHYMAL COMPOSITION: There are scattered areas of fibroglandular density. FINDINGS: Lumpectomy changes are noted in the right breast. No suspicious mass, calcification, or arc hitectural distortion are identified in either breast to suggest malignancy. There has been no suspic ious interval change. IMPRESSION: 1. No mammographic evidence of malignancy. 2. Recommend routine screening mammography in one year. BI-RADS Category 2: Benign finding(s). Reviewed, dictated and finalized at location A. UER SIZER
== END 2024-01-06 10:48 | disposition home or self-care (01) ==
LOC: CHSIMG 10:49
PROVIDERS: PCP Nurse Practitioner Family; Visit Provider Nurse Practitioner Family
DX: Z12.31 Encounter for screening mammogram for malignant neoplasm of breast (principal)
CPT/HCPCS: 77063; 77067

== ENCOUNTER 2024-02-02 07:09 | Outpatient (CLI) | payer MEDICARE, SELFPAY ==
[2024-02-02 08:23] LABS: Alanine Aminotransferase 20 U/L (14-59); Albumin Level 3.8 g/dL (3.4-5.0); Alkaline Phosphatase 82 U/L (46-116); Anion Gap 10 mmol/L (8-16); Aspartate Amino Transferase 21 U/L (15-37); Bilirubin,Total 0.5 mg/dL (0.00-1.00); Blood Urea Nitrogen 12 mg/dL (7-18); Calcium 8.8 mg/dL (8.5-10.1); Carbon Dioxide 28 mmol/L (21-32); Chloride 104 mmol/L (98-108); Cholesterol 219 mg/dL (0-200); Estimated Glomerular Filt Rate > 60; Glucose 103 mg/dL (70-99); HDL Direct 53 mg/dL (40-60); LDL Cholesterol Calculated 136 mg/dL (<130); Osmolality Calculated 293 mOsm/kg (285-295); Potassium 4.3 mmol/L (3.5-5.1); Sodium 142 mmol/L (136-145); Total Protein 7.3 g/dL (6.4-8.2); Triglycerides 151 mg/dL (0-150)
== END 2024-02-02 07:10 | disposition home or self-care (01) ==
LOC: CHSLAB 07:11
PROVIDERS: PCP Nurse Practitioner Family; Visit Provider Internal Medicine Cardiovascular Disease
DX: E78.5 Hyperlipidemia, unspecified (principal)
CPT/HCPCS: 36415; 80053; 80061

== ENCOUNTER 2024-02-14 07:06 | Outpatient (CLI) | payer MEDICARE, OTHER, SELFPAY ==
--- NOTE | ~2024-02-14 | CT_ITS ---
EXAMINATION: CT abdomen pelvis w con DATE: 02/14/2024 07:48 INDICATION: General intermittent abdominal pain TECHNIQUE: Computed tomography (CT) of the abdomen and pelvis was performed with 100 cc Omnipaque 350 intravenous contrast. The dose-length product was 724.68 mGy-cm. Automated exposure control and iter ative reconstruction technique were employed. COMPARISON: CT dated 01/22/2028. FINDINGS: Lung bases are unremarkable. No significant pleural or pericardial effusion. Status post ch olecystectomy. The liver, spleen, adrenal glands and kidneys are unremarkable. There is mild thickeni ng of the pancreas with subtle surrounding fluid, suspicious for acute pancreatitis. Nonobstructive b owel pattern. Normal appendix. No abnormal pelvic masses or fluid collections. No lymphadenopathy. Th ere is atherosclerosis of the aorta without aneurysm. Moderate lumbar spondylosis with degenerative a nterolisthesis at L4-5. IMPRESSION: 1. Mild thickening of the pancreas with subtle peripancreatic fluid, suspicious for acute pancreatiti s. Clinically correlate. Reviewed, dictated and finalized at location B. IMPRESSION: 1. Mild thickening of the pancreas with subtle peripancreatic fluid, suspicious for acute pancreatitis. Clinically correlate.
== END 2024-02-14 07:07 | disposition home or self-care (01) ==
LOC: CHSIMG 07:07
PROVIDERS: PCP Nurse Practitioner Family; Visit Provider Nurse Practitioner
DX: R10.9 Unspecified abdominal pain (principal); R93.89 Abnormal findings on diagnostic imaging of other specified body structures
CPT/HCPCS: 74177; Q9967

== ENCOUNTER 2024-02-15 09:29 | Outpatient (CLI) | payer MEDICARE, SELFPAY ==
[2024-02-15 09:46] LABS: Hemoglobin 14.2 g/dL (11.7-13.8); Mean Corpuscular HGB Conc 32.3 g/dL (32-36); Mean Corpuscular Hemoglobin 30.1 pg (27.0-31.0); Mean Corpuscular Volume 93.4 fL (78.0-102.0); Mean Platelet Volume 9.5 fl (9.2-11.8); Platelet Count Result 295 K/mm3 (150-420); Red Blood Count 4.71 M/mm3 (4.20-5.40); Red Cell Distribution Width 12.6 % (11.6-14.4); White Blood Count 12.7 K/mm3 (4.8-10.8)
[2024-02-15 10:46] LABS: Erythrocyte Sedimentation Rate 28 mm/hr (0-20)
[2024-02-15 11:56] LABS: Alanine Aminotransferase 23 U/L (14-59); Albumin Level 3.9 g/dL (3.4-5.0); Alkaline Phosphatase 90 U/L (46-116); Amylase 79 U/L (25-115); Anion Gap 12 mmol/L (4-12); Aspartate Amino Transferase 21 U/L (15-37); Bilirubin,Total 0.5 mg/dL (0.00-1.00); Blood Urea Nitrogen 18 mg/dL (7-18); CRP 0.7 mg/dL (0.0-0.9); Carbon Dioxide 27 mmol/L (21-32); Chloride 100 mmol/L (98-108); Estimated Glomerular Filt Rate > 60; Glucose 78 mg/dL (70-99); Lipase 34 U/L (16-77); Osmolality Calculated 288 mOsm/kg (285-295); Potassium 4.1 mmol/L (3.5-5.1); Sodium 139 mmol/L (136-145); Total Protein 7.5 g/dL (6.4-8.2)
== END 2024-02-15 09:30 | disposition home or self-care (01) ==
LOC: CHSLAB 09:33
PROVIDERS: PCP Nurse Practitioner Family; Visit Provider Nurse Practitioner Family
DX: I47.9 Paroxysmal tachycardia, unspecified (principal); K85.90 Acute pancreatitis without necrosis or infection, unspecified
CPT/HCPCS: 36415; 80053; 82150; 83690; 85027; 85652; 86140

== ENCOUNTER 2024-02-24 07:27 | Outpatient (CLI) | payer MEDICARE, OTHER, SELFPAY ==
--- NOTE | ~2024-02-24 | MR_ITS ---
EXAMINATION: MR MRCP wo/w con/w 3D wo ind DATE: 02/24/2024 08:51 INDICATION: Other congenital malformations of pancreas. TECHNIQUE: Magnetic resonance imaging (MRI) of the abdomen was performed without and with 16 mL Multi Dewey intravenous contrast. Sequences included coronal T2-weighted FS FSE, coronal T2-weighted FSE, a xial T1-weighted LAVA, coronal FS FIESTA, axial dual-echo T1-weighted SPGR, coronal lava-FLEX, sagitt al T2-weighted FSE, axial T2-weighted FSE, and axial DWI. Thick-slab T2-weighted FSE images were obta ined for magnetic resonance cholangiopancreatography (MRCP). Maximum intensity projection 3-D reconst ructions of the volumetric data were created by the technologist. Postcontrast sequences included cor onal LAVA-flex and time course of axial T1-weighted LAVA. COMPARISON: CT abdomen and pelvis 02/14/2024 FINDINGS: ABDOMEN MRI: The liver, gallbladder, spleen, pancreas, adrenal glands are normal. There are changes o f cholecystectomy. There are cysts in the kidneys measuring up to 7 mm on the right. There are no dil ated loops of bowel. There are no pathologically enlarged lymph nodes. There is no free intraperitone al fluid. ABDOMEN MRCP: The common duct is normal and measures 5 mm. No choledocholithiasis. The pancreatic alexandra t is normal. IMPRESSION: 1. Normal pancreas. Reviewed, dictated and finalized at location A. IMPRESSION: 1. Normal pancreas.
== END 2024-02-24 07:28 | disposition home or self-care (01) ==
LOC: CHSIMG 07:28
PROVIDERS: PCP Nurse Practitioner Family; Visit Provider Nurse Practitioner
DX: Q45.3 Other congenital malformations of pancreas and pancreatic duct (principal)
CPT/HCPCS: 74183; 76376; A9577

== ENCOUNTER 2024-04-06 07:10 | Outpatient (CLI) | payer MEDICARE, SELFPAY ==
[2024-04-06 08:12] LABS: Alanine Aminotransferase 27 U/L (14-59); Albumin Level 3.5 g/dL (3.4-5.0); Alkaline Phosphatase 78 U/L (46-116); Anion Gap 7 mmol/L (4-12); Aspartate Amino Transferase 23 U/L (15-37); Bilirubin,Total 0.4 mg/dL (0.00-1.00); Blood Urea Nitrogen 18 mg/dL (7-18); Calcium 8.5 mg/dL (8.5-10.1); Carbon Dioxide 31 mmol/L (21-32); Chloride 104 mmol/L (98-108); Cholesterol 154 mg/dL (0-200); Estimated Glomerular Filt Rate 58; Glucose 106 mg/dL (70-99); HDL Direct 49 mg/dL (40-60); LDL Cholesterol Calculated 83 mg/dL (<130); Osmolality Calculated 295 mOsm/kg (285-295); Potassium 3.9 mmol/L (3.5-5.1); Sodium 142 mmol/L (136-145); Total Protein 6.7 g/dL (6.4-8.2); Triglycerides 108 mg/dL (0-150)
== END 2024-04-06 07:11 | disposition home or self-care (01) ==
LOC: CHSLAB 07:13
PROVIDERS: PCP Nurse Practitioner Family; Visit Provider Internal Medicine Cardiovascular Disease
DX: E78.5 Hyperlipidemia, unspecified (principal)
CPT/HCPCS: 36415; 80053; 80061

== ENCOUNTER 2024-05-07 14:40 | Emergency (ER) | payer MEDICARE, SELFPAY ==
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
[2024-05-07 14:40] VITALS: BP 162/77; PULSE 84; RESP 18; TEMP 36.4; O2SAT 96
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
[2024-05-07 14:49] VITALS: BP 162/77; PULSE 84; RESP 18; TEMP 36.4; O2SAT 96
== END 2024-05-07 15:35 | disposition home or self-care (01) ==
PROVIDERS: Emergency Provider Student in an Organized Health Care Education/Training Program; PCP Nurse Practitioner Family
DX: S80.12XA Contusion of left lower leg, initial encounter (principal); I10 Essential (primary) hypertension; Z85.3 Personal history of malignant neoplasm of breast; W22.8XXA Striking against or struck by other objects, initial encounter
CPT/HCPCS: 73590; 99283

== ENCOUNTER 2024-10-15 09:38 | Emergency (ER) | payer MEDICARE, BC, SELFPAY ==
[2024-10-15 09:40] VITALS: BP 157/68; PULSE 71; RESP 18; TEMP 36.7; O2SAT 97
--- NOTE | 2024-10-15 10:10 | ED.EXTPRO ---
HPI - Extremity Problem General Chief complaint: Extremity Problem,Nontraumatic Stated complaint: swelling in rt. arm Time Seen by Provider: 10/15/24 09:40 Source: patient and family Mode of arrival: ambulatory Limitations: no limitations History of Present Illness HPI Narrative: Patient is a 79-year-old female with a right upper extremity redness and infection of the skin/cellulitis per the past 1 day. She has had in the past and knows with cellulitis did look like in the past and was treated with oral antibiotics. Patient had right breast cancer and therefore some lymphedema to the right upper extremity as a chronic change. MD Complaint: extremity pain and extremity swelling Onset (ago): day(s) (1) Pain Consistency: constant Location: right Severity scale (1-10): 4 Quality: burning and sharp Radiation: none Relieving factors: nothing Exacerbating factors: nothing Associated symptoms: fever and other ( Fever and chills last night; no thermometer) Context: other ( no DVTs) Related Data Home Medications Medication Instructions Recorded Confirmed fluticasone propionate 50 1 - 2 spray intranasal BID 09/09/22 10/15/24 mcg/actuation nasal spray,suspension (Flonase Allergy Relief) Allergies Allergy/AdvReac Type Severity Reaction Status Date / Time amoxicillin Allergy Intermediate Unknown Verified 10/15/24 09:41 sulfamethoxazole [Bactrim] Allergy Intermediate Unknown Verified 10/15/24 09:41 verapamil Allergy Intermediate Unknown Verified 10/15/24 09:41 lisinopril Allergy Unknown Palpitation Verified 10/15/24 09:41 s Sulfa (Sulfonamide Allergy Unknown Unknown Verified 10/15/24 09:41 Antibiotics) Review of Systems Review of Systems: All systems reviewed & are unremarkable except as noted in HPI and below Constitutional: Constitutional: Reports no additional constitutional complaints Eyes: Eyes: Reports no additional eye complaints ENT: Reports system reviewed and no additional complaints, except as documented Cardiovascular: Cardiovascular: Reports no additional cardiovascular complaints Respiratory: Respiratory: Reports no additional respiratory complaints Gastrointestinal: Gastrointestinal: Reports no additional gastrointestinal complaints Genitourinary: Genitourinary: Reports no additional female genitourinary complaints Musculoskeletal: Musculoskeletal: Reports no additional musculoskeletal complaints Integumentary/Breasts: Skin/Breast: Reports system reviewed and no additional complaints, except as docu Neurologic: Reports system reviewed and no additional complaints, except as documented Psychiatric: Psychiatric: Reports no additional psychiatric complaints Endocrine: Endocrine: Reports no additional endocrine complaints Hematologic/Lymphatic: Hematologic/Lymphatic: Reports no additional hematologic/lymphatic complaints Allergic/Immunologic: Allergic/Immunologic: Reports no additional allergic/immunologic complaints [facility] Past Medical History Medical History Bilateral lower abdominal cramping Breast cancer 2005 Cholecystitis (01/24/18) Colon cancer screening Dizziness (05/11/19) Essential hypertension (05/10/18) Gas bloat syndrome Gastric polyps Gastroparesis GERD (gastroesophageal reflux disease) (05/10/18) Hiatal hernia IBS (irritable bowel syndrome) Paroxysmal tachycardia, unspecified (05/11/19) Surgical History Surgical History History of lumpectomy Family History Family History Father Lung cancer Mother Cerebrovascular accident Mother Cerebrovascular accident, Onset Age: 85 Father Family history of lung cancer Social History Social History Smoking status: Never smoker Tobacco type: cigarettes Substance use: never Substance use type: does not use Do You Feel Safe in your Home?: Yes Lack of Transportation: No Lack of Food: Never True Current Housing: I Have Housing Concerned About Future Housing: No Difficulty Paying Gas/Electric Bills: No Difficulty Paying for Meds: No Currently Unemployed: No Education: High School Diploma/GED Difficulty w/ Childcare or Family Care: No Living arrangements: alone Exam Const: General: healthy appearing Nutritional Appearance: well nourished Orientation/consciousness: patient oriented x3 Limitations: no limitations HENMT: Head: normal to inspection Ears: external ears normal Face/Nose/Sinus: Normal external nose present Eyes: Conjunctivae: conjunctivae normal Pupils: Equal, round and reactive pupils present EOM: EOMs intact bilaterally Neck: Neck: normal visual inspection Chest: Chest palpation & inspection: normal inspection of the chest Resp: Effort & Inspection: normal respiratory effort and not labored Auscultation: clear to auscultation bilaterally and no crackles Cardio: Rate: regular rate Rhythm: regular rhythm Heart sounds: no murmurs GI: Inspection: non-distended GI Palp: Yes Soft to palpation and No Tenderness to palpation present (GI) Auscultation: normal bowel sounds : General: Yes bladder normal to palpation Back/Spine/Pelvis: Back: no CVA tenderness Skin: General skin exam: No normal color Rashes: no rashes Wounds: no wounds Other: right upper extremity from slightly above the elbow to the wrist and [facility] around the extremity is erythema and slight swelling and tenderness of the skin without obvious opening (there was no injury); the right elbow joint is not involved Neuro: General: patient oriented x3 Cranial nerves: Yes Nystagmus not present Speech: normal speech Gait exam (Neuro): Normal gait present Extrem: General: normal to inspection Psych: Mental Status: mental status grossly normal Affect: normal affect Attitude: cooperative Course Vital Signs Vital signs: Vital Signs Temperature 36.7 C 10/15/24 09:40 Pulse Rate 71 10/15/24 09:40 Respiratory Rate 18 10/15/24 09:40 Blood Pressure 157/68 H 10/15/24 09:40 Pulse Oximetry 97 10/15/24 09:40 Oxygen Delivery Room Air 10/15/24 09:40 Temperature 36.7 C 10/15/24 09:40 Pulse Rate 71 10/15/24 09:40 Respiratory Rate 18 10/15/24 09:40 Blood Pressure 157/68 H 10/15/24 09:40 Pulse Oximetry 97 10/15/24 09:40 Oxygen Delivery Room Air 10/15/24 09:40 MDM - Extremity (Nontraumatic) MDM Narrative Medical decision making narrative: patient is a 79-year-old female with right upper extremity redness and pain and swelling for the past 24 hours. Appearances of cellulitis. No signs of DVT. Discharge Plan Discharge Clinical Impression: Cellulitis Qualifiers: Site of cellulitis: extremity Site of cellulitis of extremity: upper extremity Laterality: right Qualified Code(s): L03.113 - Cellulitis of right upper limb Patient Disposition: Home, Self-Care Condition: Stable Instructions: Antibiotic Form, Cellulitis (ED) Prescriptions: New doxycycline monohydrate 100 mg capsule 100 mg PO BID 10 Days Qty: 20 0RF No Action fluticasone propionate [Flonase Allergy Relief] 50 mcg/actuation spray,suspension 1 - 2 spray intranasal BID Rx Instructions: administer into each nostril mupirocin 2 % ointment 1 applic topical BID Qty: 22 3RF triamcinolone acetonide 40 mg/mL suspension 40 mg intra-articular ONCE Qty: 1 0RF lidocaine (PF) 10 mg/mL (1 %) solution 4 ml intra-articular ONCE Qty: 1 0RF metoclopramide HCl 10 mg tablet 10 mg PO .HS Qty: 90 3RF magnesium oxide 400 mg (241.3 mg magnesium) tablet See Rx Instructions .ROUTE .COMPLEX Qty: 30 5RF Dose Instruction: TAKE ONE TABLET BY MOUTH DAILY Rx Instructions: TAKE ONE TABLET BY MOUTH DAILY atorvastatin 20 mg tablet See Rx Instructions .ROUTE .COMPLEX Qty: 90 2RF Dose Instruction: TAKE ONE TABLET BY MOUTH DAILY Rx Instructions: TAKE ONE TABLET BY MOUTH DAILY lansoprazole 30 mg capsule,delayed release(DR/EC) See Rx Instructions .ROUTE .COMPLEX Qty: 90 0RF Dose Instruction: TAKE ONE CAPSULE BY MOUTH DAILY Rx Instructions: TAKE ONE CAPSULE BY MOUTH DAILY anastrozole 1 mg tablet 1 mg PO DAILY Qty: 90 3RF spironolactone 25 mg tablet See Rx Instructions .ROUTE .COMPLEX Qty: 30 5RF Dose Instruction: TAKE ONE TABLET BY MOUTH DAILY Rx Instructions: TAKE ONE TABLET BY MOUTH DAILY atenolol 50 mg tablet See Rx Instructions .ROUTE .COMPLEX Qty: 60 5RF Dose Instruction: TAKE ONE TABLET BY MOUTH TWICE A DAY Rx Instructions: TAKE ONE TABLET BY MOUTH TWICE A DAY terconazole 0.8 % cream See Rx Instructions .ROUTE .COMPLEX Qty: 20 0RF Dose Instruction: INSERT ONE APPLICATORFUL VAGINALLY NIGHTLY AT BEDTIME FOR 3 DAYS Rx Instructions: INSERT ONE APPLICATORFUL VAGINALLY NIGHTLY AT BEDTIME FOR 3 DAYS nystatin 100,000 unit/gram ointment See Rx Instructions .ROUTE .COMPLEX Qty: 30 0RF Dose Instruction: APPLY TO AFFECTED AREA TWICE A DAY DIRECTED Rx Instructions: APPLY TO AFFECTED AREA TWICE A DAY DIRECTED amlodipine 10 mg tablet See Rx Instructions .ROUTE .COMPLEX Qty: 90 0RF Dose Instruction: TAKE ONE TABLET BY MOUTH DAILY Rx Instructions: TAKE ONE TABLET BY MOUTH DAILY Follow-up/Referrals: UNKNOWN,DOCTOR [Non-Staff] - Time of Disposition: 10:24
[2024-10-15 10:36] VITALS: BP 147/68; PULSE 60; RESP 17; TEMP 36.7; O2SAT 100
== END 2024-10-15 10:36 | disposition home or self-care (01) ==
LOC: CHSED 10:22
PROVIDERS: Emergency Provider Emergency Medicine; PCP Nurse Practitioner Family
DX: L03.113 Cellulitis of right upper limb (principal); I10 Essential (primary) hypertension; Z85.3 Personal history of malignant neoplasm of breast
CPT/HCPCS: 99284

== ENCOUNTER 2024-10-30 14:24 | Outpatient (CLI) | payer MEDICARE, BC, SELFPAY ==
--- NOTE | ~2024-10-30 | XR_ITS ---
XR abdomen/kub 1V Ordering provider: Dora Wang NP History: . R10.12 - Left upper quadrant pain . Comparison: None. FINDINGS: BOWEL: Nonobstructive bowel gas pattern. ORGANOMEGALY: None. SIGNIFICANT PATHOLOGIC CALCIFICATIONS: Calcification in the left side of the abdomen which may be Lef t kidney stone is noted. OTHER: No free air is seen under the diaphragm. Degenerative changes of the spine. IMPRESSION: NO ACUTE ABDOMINAL FINDINGS. Possible left kidney stone. Reviewed, dictated and finalized at location A. MOLDER
[2024-10-30 14:45] LABS: Basophils Absolute Auto 0.06 K/mm3 (0.00-0.10); Basophils Percent Auto 0.5 % (0.0-1.0); Eosinophils Absolute Auto 0.07 K/mm3 (0.02-0.50); Eosinophils Percent Auto 0.6 % (1.0-6.0); Hematocrit 48.1 % (35.0-42.0); Hemoglobin 15.5 g/dL (11.7-13.8); Immature Granulocyte Absolute 0.06 K/mm3 (0.00-0.00); Immature Granulocyte Percent A 0.5 % (0.0-0.0); Lymphocytes Absolute Auto 2.93 K/mm3 (1.10-4.50); Lymphocytes Percent Auto 23.2 % (18.0-42.0); Mean Corpuscular HGB Conc 32.2 g/dL (32-36); Mean Corpuscular Hemoglobin 30.2 pg (27.0-31.0); Mean Corpuscular Volume 93.8 fL (78.0-102.0); Mean Platelet Volume 10.1 fl (9.2-11.8); Monocytes Absolute Auto 0.83 K/mm3 (0.10-0.90); Monocytes Percent Auto 6.6 % (2.0-11.0); Neutrophils Absolute Auto 8.69 K/mm3 (1.70-7.20); Neutrophils Percent Auto 68.6 % (50.0-70.0); Platelet Count Result 206 K/mm3 (150-420); Red Blood Count 5.13 M/mm3 (4.20-5.40); Red Cell Distribution Width 13.1 % (11.6-14.4); White Blood Count 12.6 K/mm3 (4.8-10.8)
[2024-10-30 15:27] LABS: CRP < 0.5 mg/dL (0.0-0.9)
[2024-10-30 15:30] LABS: Alanine Aminotransferase 31 U/L (14-59); Albumin Level 3.9 g/dL (3.4-5.0); Alkaline Phosphatase 101 U/L (46-116); Amylase 81 U/L (25-115); Anion Gap 10 mmol/L (4-12); Aspartate Amino Transferase 18 U/L (15-37); Bilirubin,Total 0.5 mg/dL (0.00-1.00); Blood Urea Nitrogen 18 mg/dL (7-18); Calcium 9.2 mg/dL (8.5-10.1); Carbon Dioxide 27 mmol/L (21-32); Chloride 100 mmol/L (98-108); Estimated Glomerular Filt Rate 57; Glucose 111 mg/dL (70-99); Lipase 37 U/L (16-77); Osmolality Calculated 286 mOsm/kg (285-295); Potassium 4.2 mmol/L (3.5-5.1); Sodium 137 mmol/L (136-145); Total Protein 7.4 g/dL (6.4-8.2)
== END 2024-10-30 14:25 | disposition home or self-care (01) ==
LOC: CHSLAB 14:28
PROVIDERS: PCP Nurse Practitioner Family; Visit Provider Nurse Practitioner Family
DX: R10.12 Left upper quadrant pain (principal)
CPT/HCPCS: 36415; 74018; 80053; 82150; 83690; 85025; 86140

== ENCOUNTER 2024-11-07 13:10 | Outpatient (CLI) | payer MEDICARE, BC, SELFPAY ==
--- NOTE | ~2024-11-07 | US_ITS ---
US renal BI 11/07/2024 13:30 Procedure: Realtime transabdominal ultrasound of the kidneys and bladder. Indication: Possible left kidney stone Comparison: KUB dated 10/30/2024 Findings: Renal echotexture is normal bilaterally without hydronephrosis, contour deforming mass or r enal calculus. The right kidney measures 9.6 cm and left kidney measures 9.3 cm. Bladder not well dis tended for evaluation. Impression: 1: Unremarkable renal ultrasound. No stones, masses or hydronephrosis. Reviewed, dictated and finalized at location B. OUS WALLBOARD INSPECTOR Impression: 1: Unremarkable renal ultrasound. No stones, masses or hydronephrosis.
== END 2024-11-07 13:11 | disposition home or self-care (01) ==
PROVIDERS: PCP Nurse Practitioner Family; Visit Provider Nurse Practitioner Family
DX: N20.0 Calculus of kidney (principal)
CPT/HCPCS: 76775

== ENCOUNTER 2025-01-09 11:43 | Outpatient (CLI) | payer MEDICARE, SELFPAY ==
--- NOTE | ~2025-01-09 | MM_ITS ---
EXAMINATION: MM screening astrid BI w francisca HISTORY: Screening TECHNIQUE: Craniocaudal and mediolateral oblique 3-D tomosynthesis images were obtained and synthetic 2-D images were generated. CAD analysis was submitted and interpreted. COMPARISON: Comparison to multiple prior studies sequentially, with oldest reviewed study dated 12/14. BREAST PARENCHYMAL COMPOSITION: Not dense: There are scattered areas of fibroglandular density. FINDINGS: There is no evidence of suspicious mass, calcification, or architectural distortion to sugg est malignancy in either breast. There has been no suspicious interval change. IMPRESSION: 1. No mammographic evidence of malignancy. 2. Recommend routine screening mammography in one year. BI-RADS Category 1: Negative Reviewed, dictated and finalized at location B. NG CLIPPER
== END 2025-01-09 11:44 | disposition home or self-care (01) ==
PROVIDERS: PCP Nurse Practitioner Family; Visit Provider Nurse Practitioner Family
DX: Z12.31 Encounter for screening mammogram for malignant neoplasm of breast (principal)
CPT/HCPCS: 77063; 77067

== ENCOUNTER 2025-07-19 08:21 | Outpatient (NON) | payer MEDICARE, SELFPAY | END 2025-07-19 08:22 | disposition home or self-care (01) | LOC: CHSLAB 08:23 | PROVIDERS: PCP Nurse Practitioner Family; Visit Provider Nurse Practitioner Family | DX: S41.119A Laceration without foreign body of unspecified upper arm, initial encounter (principal) | CPT/HCPCS: 87070; 87075 ==

== ENCOUNTER 2025-09-05 08:36 | Outpatient (CLI) | payer MEDICARE, SELFPAY ==
--- NOTE | ~2025-09-05 | MR_ITS ---
MR breast BI wo/w con 09/10/2025 12:14 CDT INDICATION: Unspecified lump in the right breast. Normal screening mammogram on 01/09/2025. TECHNIQUE: MRI of the breasts perform using standard protocol pre-and post IV contrast with the following sequences: Axial T2 STIR, axial T1, axial vibrant T1 with fat suppression precontrast and multiphasic postcontrast. 16 cc MultiHance administered intravenously COMPARISON: Comparison to multiple prior studies sequentially, with oldest reviewed study dated 10/04/2020. FINDINGS: There is marked bilateral background parenchymal enhancement, which may limit sensitivity of the examination. There are is a scattered fibroglandular content. Right breast: There are no abnormalities on the precontrast sequences. There is marked background parenchymal enhancement. No enhancing lesions following contrast administration. No areas of enhancement meeting threshold criteria on CAD analysis. No evidence of signal abnormalities in the axillary or internal mammary node distributions. LEFT BREAST: No signal abnormalities on precontrast sequences. There is marked background parenchymal enhancement. No enhancing lesions following contrast administration. No areas of enhancement meeting threshold criteria on CAD analysis. No evidence of signal abnormalities in the axillary or internal mammary node distributions.] IMPRESSION: 1: No MRI evidence of malignancy in either breast. Marked background parenchymal enhancement, which may obscure small lesions. If palpable abnormality persist or enlarges, targeted ultrasound or short-term follow-up MRI may be considered. BI-RADS CATEGORY 2 - BENIGN FINDINGS Reviewed, dictated and finalized at location [facility]. IMPRESSION: 1: No MRI evidence of malignancy in either breast. Marked background parenchyma l enhancement, which may obscure small lesions. If palpable abnormality persi st or enlarges, targeted ultrasound or short-term follow-up MRI may be consider ed. BI-RADS CATEGORY 2 - BENIGN FINDINGS
== END 2025-09-05 08:37 | disposition home or self-care (01) ==
PROVIDERS: PCP Nurse Practitioner Family; Visit Provider Nurse Practitioner Family
DX: N63.10 Unspecified lump in the right breast, unspecified quadrant (principal); Z85.3 Personal history of malignant neoplasm of breast
CPT/HCPCS: 77049; A9577; C8908